=== PATIENT | male | born 1965 | race African-American/Black ===

== ENCOUNTER 2017-06-13 11:38 | Emergency (ER) | payer OTHER, MEDICAID ==
[2017-06-13 11:43] VITALS: BP 141/83; BMI 23.1
--- NOTE | 2017-06-13 12:25 | DR.GENAD ---
HPI - PCP Primary Care Physician: nfd - Complaint/Symptoms Chief Complaint Doctors Comments: Patients states that he has hab abdominal pain for two months, he use to drink alcohol but has decrease. He denies fever or diarrhea. Chief Complaint:: patient he has been having abd pain for about 2 months. patient stated when he eats he vomits, but no diarrhea - Source History Provided: Patient - Mode of Arrival Mode of Arrival: Ambulatory - Timing Onset of Chief Complaint: 04/16/17 PMH - PMH Past Medical History: No Past Surgical History: No - Family History History of Family Medical Conditions: No - Social History Does patient currently use any type of tobacco product: Yes Have you used tobacco products in the last 12 months: Yes Type of Tobacco Use: Cigarettes How many years tobacco product used: 20 Does any household member use tobacco: No Alcohol Use: Occasionally Do you use any recreational Drugs:: Yes (thc) Lives With: Family Lives Where: Home - infectious screening In the last 2 months have you had wt loss of >10#?: NO Have you had fever, night sweats or hemotysis?: No Have you traveled outside the country in the last 6 months?: No Isolation: Standard ROS - Review of Systems Eyes: No Symptoms Reported ENTM: No Symptoms Reported Respiratoy: No Symptoms Reported Cardiovascular: No Symptoms Reported Gastrointestinal/Abdominal: Abdominal Pain Genitourinary: No Symptoms Reported Neurological: No Symptoms Reported Musculoskeletal: No Symptoms Reported Integumentary: No Symptoms Reported Hematologic/Lymphatic: No Symptoms Reported Endocrine: No Symptoms Reported Psychiatric: No Symptoms Reported All Other Systems: Reviewed and Negative PE - Vital Signs Vitals: Temperature 98.7 F Pulse Rate 70 Respiratory Rate 16 Blood Pressure 141/83 O2 Sat by Pulse Oximetry 100 - General Limitations: No Limitations General Appearance: Alert, In No Apparent Distress - Head Head Exam: Normal Inspection, Atraumatic - Eyes Eye exam: Normal Appearance, PERRL, EOMI - ENT ENT Exam: Normal Exam External Ear Exam: Normal External Inspection TM/Canal Exam: Bilateral Normal Nose Exam: Normal Nose Exam Mouth Exam: Normal Inspection Throat Exam: Normal Inspection - Neck Neck Exam: Normal Inspection, Full ROM - Chest Chest Inspection: Normal Inspection, Symmetric Chest Wall Rise - Respiratory Respiratory Exam: Normal Lung Sounds Bilat Respiratory Exam: Bilateral Clear to Auscultation - Cardiovascular Cardiovascular Exam: Regular Rate, Normal Rhythm - Abdominal Exam Abdominal Exam: Normal Inspection, Normal Bowel Sounds Abdominal Tenderness: Suprapubic. negative: RUQ, LUQ, LLQ - Extremities Extremities Exam: Normal Inspection, Full ROM, Tenderness - Back Back Exam: Normal Inspection, Full ROM - Neurologic Neurological Exam: Alert, Oriented X3, CN II-XII Intact ROR - Labs Reviewed Laboratory Results Reviewed?: Yes (H Pylori Positive Lipase 1273) Result Diagrams: 06/13/17 12:50 06/13/17 12:50 Laboratory: WBC 5.0 X10^3/uL (3.6-10.0) 06/13/17 12:50 RBC 4.80 X10^6/uL (4.7-6.0) 06/13/17 12:50 Hgb 14.3 g/dL (13.5-18.0) 06/13/17 12:50 Hct 42.6 % (42.0-54.0) 06/13/17 12:50 MCV 88.8 fL (80.0-100.0) 06/13/17 12:50 MCH 29.8 pg (27.0-34.0) 06/13/17 12:50 MCHC 33.6 g/dL (33.0-35.0) 06/13/17 12:50 RDW 14.0 % (11.6-16.5) 06/13/17 12:50 Plt Count 303 X10^3/uL (150.0-450.0) 06/13/17 12:50 MPV 7.1 fL (7.4-11.0) L 06/13/17 12:50 Neut % 56.4 % (42.0-75.0) 06/13/17 12:50 Lymph % 36.6 % (21.0-51.0) 06/13/17 12:50 [place] % 5.4 % (0.0-13.0) 06/13/17 12:50 Eos % 0.8 % (0.9-2.9) L 06/13/17 12:50 Baso % 0.8 % (0.2-1.0) 06/13/17 12:50 Neut # 2.8 x10^3/uL (2.2-4.8) 06/13/17 12:50 Lymph # 1.8 X10^3/uL (1.3-2.9) 06/13/17 12:50 [place] # 0.3 x10^3/uL (0.3-0.8) 06/13/17 12:50 Eos # 0.0 x10^3/uL (0.0-0.2) 06/13/17 12:50 Baso # 0.0 X10^3/uL (0.0-0.1) 06/13/17 12:50 Absolute Nucleated RBC 0.0 /100WBC 06/13/17 12:50 Sodium 139 mmol/L (136-145) 06/13/17 12:50 Corrected Sodium TNP 06/13/17 12:50 Potassium 3.6 mmol/L (3.5-5.1) 06/13/17 12:50 Chloride 104 mmol/L (98-107) 06/13/17 12:50 Carbon Dioxide 28.8 mmol/L (21-32) 06/13/17 12:50 BUN 12 mg/dL (7-18) 06/13/17 12:50 Creatinine 1.52 mg/dL (0.70-1.30) H 06/13/17 12:50 Est GFR (MDRD) Af Amer > 60 (>60) 06/13/17 12:50 Est GFR (MDRD) Non-Af 52 (>60) L 06/13/17 12:50 Glucose 96 mg/dL (65-99) 06/13/17 12:50 Calcium 8.9 mg/dL (8.5-10.1) 06/13/17 12:50 Corrected Calcium TNP 06/13/17 12:50 Total Bilirubin 0.30 mg/dL (0.2-1.0) 06/13/17 12:50 AST 15 Units/L (15-37) 06/13/17 12:50 ALT 25 Units/L (12-78) 06/13/17 12:50 Alkaline Phosphatase 79 Units/L (46-116) 06/13/17 12:50 C-Reactive Protein 1.00 mg/L (0-3.0) 06/13/17 12:50 Total Protein 7.9 g/dL (6.4-8.2) 06/13/17 12:50 Albumin 4.0 g/dL (3.4-5.0) 06/13/17 12:50 Globulin 3.9 g/dL (2.5-4.5) 06/13/17 12:50 Albumin/Globulin Ratio 1.0 Ratio (1.1-2.1) L 06/13/17 12:50 Amylase 317 Units/L (25-115) H 06/13/17 12:50 Lipase 1273 Units/L (73-393) H 06/13/17 12:50 H. pylori IgG Antibody Positive (NEGATIVE) A 06/13/17 12:50 - XRAY XRAY Interpreted by: Radiologist (Acute Abdomial Series: No acute pathology identified) - Diagnosis Discharge Problem: Helicobacter pylori gastritis Pancreatitis, chronic Qualifiers: Pancreatitis type: alcohol induced Qualified Code(s): K86.0 - Alcohol-induced chronic pancreatitis - Discharge Plan Condition: Stable - Follow ups/Referrals Follow ups/Referrals: NFD,None [Primary Care Provider] - 3 days - Instructions
--- NOTE | 2017-06-13 12:57 | RAD ---
HISTORY: Epigastric pain Study: Flat and upright abdomen, PA chest Comparison: None Findings: The abdominal gas pattern is nonspecific and nonobstructive. No pneumoperitoneum is identified. No ab normal masses or abnormal calcifications are identified. The chest is clear. IMPRESSION: Unremarkable abdominal series Reported By:
[2017-06-13 13:03] LABS: BASOPHILS % (AUTO) 0.8 % (0.2-1.0); EOSINOPHILS % (AUTO) 0.8 % (0.9-2.9); HEMATOCRIT 42.6 % (42.0-54.0); HEMOGLOBIN 14.3 g/dL (13.5-18.0); LYMPHOCYTES # (AUTO) 1.8 X10^3/uL (1.3-2.9); LYMPHOCYTES % (AUTO) 36.6 % (21.0-51.0); MEAN CORPUSCULAR HEMOGLOBIN 29.8 pg (27.0-34.0); MEAN CORPUSCULAR HGB CONC 33.6 g/dL (33.0-35.0); MEAN CORPUSCULAR VOLUME 88.8 fL (80.0-100.0); MEAN PLATELET VOLUME 7.1 fL (7.4-11.0); MONOCYTES # (AUTO) 0.3 x10^3/uL (0.3-0.8); MONOCYTES % (AUTO) 5.4 % (0.0-13.0); NEUTROPHILS # (AUTO) 2.8 x10^3/uL (2.2-4.8); NEUTROPHILS % (AUTO) 56.4 % (42.0-75.0); PLATELET COUNT 303 X10^3/uL (150.0-450.0)
[2017-06-13 13:11] LABS: ALANINE AMINOTRANSFERASE 25 Units/L (12-78); ALKALINE PHOSPHATASE 79 Units/L (46-116); AMYLASE 317 Units/L (25-115); ASPARTATE AMINO TRANSFERASE 15 Units/L (15-37); BLOOD UREA NITROGEN 12 mg/dL (7-18); CALCIUM 8.9 mg/dL (8.5-10.1); CARBON DIOXIDE 28.8 mmol/L (21-32); CHLORIDE 104 mmol/L (98-107); CREATININE 1.52 mg/dL (0.70-1.30); LIPASE 1273 Units/L (73-393); SODIUM 139 mmol/L (136-145); TOTAL PROTEIN 7.9 g/dL (6.4-8.2); eGFR BLACK RACES > 60 (>60); eGFR NON BLACK RACES 52 (>60)
== END 2017-06-13 13:42 | disposition home or self-care (01) ==
LOC: ER 11:50
DX: K29.60 Other gastritis without bleeding (principal); B96.81 Helicobacter pylori [H. pylori] as the cause of diseases classified elsewhere
CPT/HCPCS: 36415; 74022; 80053; 82150; 83690; 85025; 86140; 86677; 99282; 99283

== ENCOUNTER 2017-09-30 11:14 | Emergency (ER) | payer OTHER, MEDICAID ==
[2017-09-30 11:22] VITALS: BP 117/67; BMI 23.3
--- NOTE | 2017-09-30 11:52 | DR.GENAD ---
HPI - PCP Primary Care Physician: nfd - Complaint/Symptoms Chief Complaint Doctors Comments: As noted in nurses notes. He denies recent dental procedures or being on JESSE-I or [facility]. He has not consumed any seafood recently. His tongue is not swollen. He denies throat swelling, pruritis, dyspnea or dysphagia. Chief Complaint:: Pt states he woke up about 6AM this morning and noticed his top lip was a little swollen. Woke back up around 10AM and top hip was even more swollen. Denies difficulty breathing or pain. - Nurses notes reviewed Nurses Notes Review: Yes - Source History Provided: Patient - Mode of Arrival Mode of Arrival: Ambulatory - Timing Onset of Chief Complaint: 09/30/17 PMH - PMH Past Medical History: No Past Surgical History: No - Family History History of Family Medical Conditions: Yes Family Medical History: Diabetes Mellitus - Social History Does patient currently use any type of tobacco product: Yes Have you used tobacco products in the last 12 months: Yes Type of Tobacco Use: Cigarettes How many years tobacco product used: 10 Does any household member use tobacco: No Alcohol Use: Occasionally Do you use any recreational Drugs:: Yes (marijuana) Lives With: Mom Lives Where: Home - infectious screening In the last 2 months have you had wt loss of >10#?: NO Have you had fever, night sweats or hemotysis?: No Have you traveled outside the country in the last 6 months?: No Isolation: Standard ROS - Review of Systems Constitutional: No Symptoms Reported Eyes: No Symptoms Reported ENTM: Mouth Swelling Respiratoy: No Symptoms Reported Cardiovascular: No Symptoms Reported Gastrointestinal/Abdominal: No Symptoms Reported Neurological: No Symptoms Reported Musculoskeletal: No Symptoms Reported Integumentary: No Symptoms Reported Hematologic/Lymphatic: No Symptoms Reported Endocrine: No Symptoms Reported Psychiatric: No Symptoms Reported All Other Systems: Reviewed and Negative PE - Vital Signs Vitals: Temperature 97.7 F Pulse Rate 75 Respiratory Rate 18 Blood Pressure 117/67 O2 Sat by Pulse Oximetry 99 - General Limitations: No Limitations General Appearance: Alert, In No Apparent Distress - Head Head Exam: Normal Inspection - Eyes Eye exam: Normal Appearance - ENT External Ear Exam: Normal External Inspection TM/Canal Exam: Bilateral Normal Nose Exam: Normal Nose Exam Mouth Exam: Lip Swelling (moderate to severe swelling of the upper lip, mild swelling of the lower lip.). negative: Normal Inspection, Drooling, Trismus, Tongue Elevation, Tongue Swelling, Laceration Throat Exam: Normal Inspection - Neck Neck Exam: Normal Inspection, Full ROM, Trachea Midline - Chest Chest Inspection: Normal Inspection - Respiratory Respiratory Exam: Normal Lung Sounds Bilat - Cardiovascular Cardiovascular Exam: Regular Rate, Normal Rhythm, Normal Heart Sounds, +S1, +S2 - Abdominal Exam Abdominal Exam: Normal Inspection, Normal Bowel Sounds, Soft - Extremities Extremities Exam: Normal Inspection - Back Back Exam: Normal Inspection - Neurologic Neurological Exam: Alert, Oriented X3, Normal Gait - Psychiatric Psychiatric Exam: Normal Affect, Normal Mood - Skin Skin Exam: Warm, Dry, Intact, Normal Color - Diagnosis Discharge Problem: Angio-edema - Discharge Plan Disposition: HOME, SELF-CARE Condition: Stable - Follow ups/Referrals Follow ups/Referrals: NFD,None [Primary Care Provider] - 3 days - Instructions Instructions: Angioedema, [id number]
[2017-09-30] MEDS ORDERED: ADRENALINE CHL INJ IM ONE (12:02)
[2017-09-30] MEDS ORDERED: SOLU-Medrol 125 MG VIAL IVP ONE (12:05)
[2017-09-30] MEDS ORDERED: BENADRYL CAP 50 MG PO ONE (12:06)
[2017-09-30] MEDS ORDERED: SOLU-Medrol 125 MG VIAL ONE (12:45)
[2017-09-30] MEDS ORDERED: ADRENALINE CHL INJ ONE (12:46)
[2017-09-30] MEDS ORDERED: BENADRYL CAP/TAB 25 MG PO ONE (12:46)
[2017-09-30] MEDS ORDERED: ZANTAC PO ONE (12:53)
[2017-09-30] MEDS ORDERED: ZANTAC PO SCH (21:00)
== END 2017-09-30 13:20 | disposition home or self-care (01) ==
LOC: ER 11:26
DX: R22.0 Localized swelling, mass and lump, head (principal); T78.3XXA Angioneurotic edema, initial encounter
CPT/HCPCS: 96372; 99282; J0170; J2930